=== PATIENT | female | born 1995 | race African-American/Black ===

== ENCOUNTER 2023-05-29 19:56 | Emergency (ER) | payer SELFPAY ==
[~2023-05-29] VITALS: Ht 157.5 cm; Wt 57.0 kg
[2023-05-29 20:14] VITALS: TEMP 98; O2SAT 100
[2023-05-29 20:47] LABS: HEMOGLOBIN. 8.5 g/dL (12.0-16.0); MEAN CORPUSCULAR HEMOGLOBIN 22.1 pg (28.0-32.0); MEAN CORPUSCULAR HGB CONC 31.4 g/dL (31.0-37.0); MEAN CORPUSCULAR VOLUME 70.2 fL (81.0-99.0); MEAN PLATELET VOLUME 6.5 fl (7.4-10.4); PLATELET 334 x1000/uL (130-400); RED BLOOD CELL COUNT 3.85 mill/uL (4.2-5.4); RED CELL DISTRIBUTION WIDTH 21.5 % (11.6-14.6); WHITE BLOOD COUNT 6.6 x1000/uL (4.5-11.0)
[2023-05-29 20:48] LABS: DIFFERENTIAL COMMENT 1
[2023-05-29 21:04] LABS: ANISOCYTOSIS 2+; HYPOCHROMASIA 1+; MICROCYTOSIS 2+; PLATELET ESTIMATE NORMAL
[2023-05-29 21:09] LABS: ALANINE AMINOTRANSFERASE 25 IU/L (10-49); ASPARTATE AMINOTRANSFERASE 29 IU/L (<34); BILIRUBIN TOTAL 0.5 mg/dL (0.1-1.0); CALCIUM 9.8 mg/dL (8.7-10.4); CARBON DIOXIDE 22 mEq/L (21-32); CHLORIDE 105 mEq/L (98-107); CREATININE 0.7 mg/dL (0.6-1.0); GLUCOSE 113 mg/dL (70-105); POTASSIUM 3.7 mEq/L (3.5-5.1); SODIUM 140 mEq/L (136-145); UREA NITROGEN BLOOD 12 mg/dL (9-23)
[2023-05-29 21:10] LABS: TROPONIN I HIGH SENSITIVITY < 4 ng/L (3.0-34)
[2023-05-29 21:23] LABS: CLARITY URINE CLEAR (CLEAR); COLOR URINE YELLOW (YELLOW); GLUCOSE URINE NEGATIVE (NEGATIVE); KETONES URINE 2+ (NEGATIVE); LEUKOCYTE ESTERASE URINE NEGATIVE (NEGATIVE); NITRITE URINE NEGATIVE (NEGATIVE); OCCULT BLOOD URINE NEGATIVE (NEGATIVE); PROTEIN URINE 1+ (NEGATIVE); SPECIFIC GRAVITY URINE 1.029 (1.005-1.030); UROBILINOGEN URINE 0.2 E.U./dL (0.2-1.0)
[2023-05-29 21:47] LABS: BACTERIA URINE NONE SEEN; RBC URINE NONE SEEN /hpf (0-2); SQUAMOUS EPITHELIAL CELL URINE 1+ /lpf (RARE/1+); WBC URINE NONE SEEN /hpf (0-2)
[2023-05-30] MEDS ORDERED: SODIUM CHLORIDE 0.9% 1,000 ML IV ONE (02:30)
[2023-05-30] MEDS ORDERED: ONDANSETRON HCL 4MG/2ML INJ IV ONE (02:30)
[2023-05-30] MEDS ORDERED: MAGNESIUM/ALUMINUM HYDROXIDE/SIMETHICONE 30ML UDC PO ONE (02:30)
[2023-05-30] MEDS ORDERED: DEXAMETHASONE 10 MG/ML VIAL IV NR (04:00)
[2023-05-30] MEDS ORDERED: KETOROLAC 15MG/ML VIAL IV NR (04:00)
[2023-05-30] MEDS ORDERED: BACL-141 MT (04:02)
[2023-05-30] MEDS ORDERED: NAPR-1129 MT (04:02)
[2023-05-30] MEDS ORDERED: ONDA4TAB50 MT (04:02)
[2023-05-30 04:23] VITALS: BP 113/64; PULSE 68; RESP 18
== END 2023-05-30 04:24 | disposition home or self-care (01) ==
LOC: ER 19:56
DX: B34.9 Viral infection, unspecified (principal); R11.2 Nausea with vomiting, unspecified; R51.9 Headache, unspecified
CPT/HCPCS: 99285; 71045; 80053; 81003; 81025; 85025; 84484; 36415; 93005; 96374; 96375; 96361; J1100; J1885; J2405; J7030

== ENCOUNTER 2024-03-16 10:48 | Emergency (ER) | payer OTHER ==
[~2024-03-16] VITALS: Ht 157.5 cm; Wt 52.0 kg
[~2024-03-16 10:48] MED LIST: BACL-141 MT; NAPR-1129 MT; ONDA4TAB50 MT
[2024-03-16 10:51] VITALS: O2SAT 100
[2024-03-16 10:53] VITALS: BP 144/63; PULSE 87; TEMP 98.3; O2SAT 97
[2024-03-16] MEDS ORDERED: MAGNESIUM/ALUMINUM HYDROXIDE/SIMETHICONE 30ML UDC PO STA (11:35)
[2024-03-16] MEDS: HALOPERIDOL LACTATE 5MG/ML VIAL IM ONE (11:49)
[2024-03-16 12:14] LABS: BASOPHILS % 0.7 % (0.0-2.0); DIFFERENTIAL COMMENT 0; HEMATOCRIT. 30.2 % (36.0-48.0); HEMOGLOBIN. 9.5 g/dL (12.0-16.0); LYMPHOCYTES % 10.3 % (20.0-50.0); MEAN CORPUSCULAR HGB CONC 31.5 g/dL (31.0-37.0); MEAN CORPUSCULAR VOLUME 73.1 fL (81.0-99.0); MEAN PLATELET VOLUME 6.7 fl (7.4-10.4); PLATELET 459 x1000/uL (130-400); RED BLOOD CELL COUNT 4.13 mill/uL (4.2-5.4); RED CELL DISTRIBUTION WIDTH 19.5 % (11.6-14.6); WHITE BLOOD COUNT 8.9 x1000/uL (4.5-11.0)
[2024-03-16 12:27] LABS: HCG SCREEN NEGATIVE
[2024-03-16 12:33] LABS: CHLORIDE 108 mEq/L (98-107); POTASSIUM 3.5 mEq/L (3.5-5.1); SODIUM 142 mEq/L (136-145)
[2024-03-16 12:34] LABS: CARBON DIOXIDE 24 mEq/L (21-32)
[2024-03-16 12:39] LABS: CREATININE 0.8 mg/dL (0.6-1.0); GLUCOSE 113 mg/dL (70-105); UREA NITROGEN BLOOD 9 mg/dL (9-23)
[2024-03-16 12:41] LABS: ALANINE AMINOTRANSFERASE 41 IU/L (10-49); ALBUMIN 5.2 g/dL (3.2-4.8); ASPARTATE AMINOTRANSFERASE 48 IU/L (<34); BILIRUBIN DIRECT 0.1 mg/dL (<=3.0); BILIRUBIN TOTAL 0.3 mg/dL (0.1-1.0)
[2024-03-16] MEDS: FAMOTIDINE 20MG/2ML VIAL IV STA (13:52)
[2024-03-16] MEDS ORDERED: FAMOTIDINE 20MG/2ML VIAL IV NR (14:00)
[2024-03-16] MEDS: MAGNESIUM/ALUMINUM HYDROXIDE/SIMETHICONE 30ML UDC PO NR (14:02)
[2024-03-16] MEDS: DICYCLOMINE 10 MG/5 ML ORAL SYR PO STA (14:02)
[2024-03-16] MEDS ORDERED: METOCLOPRAMIDE HCL 10MG/2ML VIAL IV ONE (14:15)
[2024-03-16] MEDS: FAMOTIDINE 20MG/2ML VIAL IV NR (14:59)
[2024-03-16] MEDS: METOCLOPRAMIDE HCL 10MG/2ML VIAL IV NR (14:59)
[2024-03-16 15:30] VITALS: RESP 16
== END 2024-03-16 15:55 | disposition home or self-care (01) ==
LOC: ER 10:48
DX: F12.90 Cannabis use, unspecified, uncomplicated (principal); K29.70 Gastritis, unspecified, without bleeding
CPT/HCPCS: 80076; 80048; 84703; 83690; 85025; 36415; 96372; 96374; 96375; 99284; J3490; J1630; J2765; Z7610